=== PATIENT | female | born 1980 | race Caucasian/White ===

== ENCOUNTER 2020-05-16 23:55 | Emergency (ER) | payer MEDICAID ==
[~2020-05-16] VITALS: Ht 157.5 cm; Wt 67.1 kg
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
[2020-05-17] MEDS ORDERED: HYDROCODONE/APAP 10/325MG TABLET ONE (00:15)
--- NOTE | 2020-05-17 00:18 | NUR ---
RADIOLOGY AT BEDSIDE FOR XRAY, PT IN TOO MUCH PAIN AND UNABLE TO TOLERATE STAYING STILL FOR XRAY. MD AWARE. PT MEDICATED PER MD ORDER. WILL CONTINUE TO MONITOR
[2020-05-17] MEDS ORDERED: HYDROCODONE/APAP 10/325MG TABLET PO ONE (00:30)
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
[2020-05-17 00:37] VITALS: BP 137/62
== END 2020-05-17 00:37 | disposition home or self-care (01) ==
LOC: ER 23:57
DX: M54.41 Lumbago with sciatica, right side (principal)